=== PATIENT | female | born 1950 | race Caucasian/White ===

== ENCOUNTER → 2017-07-06 | Day surgery (SDC) | payer OTHER ==
--- NOTE | 2017-07-03 13:37 | History & Physical Pre-Op ---
General Information and HPI History of Present Illness: Angelica is a 67-year-old female with a long-standing and worsening complaint of pain to her left first metatarsophalangeal joint. The patient has undergone an extended course of conservative care, including shoe gear and activity modification, rest, immobilization and courses of NSAIDs. None of this is yielded her any significant relief. The patient presents today for preoperative surgical consultation. Allergies/Medications Allergies: Coded Allergies: No Known Allergies (07/02/17) Home Med list FERROUS SULFATE (IRON) (Unknown Strength) TAB (Unknown Dose) PO DAILY SUPPLEMENT (Reported) Hydrochlorothiazide (Hydrodiuril 25 MG Tab) 25 MG TAB 1 TAB PO DAILY BP ( Reported) Lisinopril 20 MG TAB 1 TAB PO DAILY BP (Reported) Past History Medical History Cardiovascular: hypertension Surgical History Pertinent Surgical History: knee replacement Review of Systems Review of Systems: Unremarkable except for that noted in history of present illness Exam & Diagnostic Data Physical Exam: Lungs clear bilaterally. Heart sounds rate and rhythm regular. Lower extremity physical exam demonstrates intact pedal pulses bilaterally. Both dorsalis pedis and posterior tibial arteries are palpable bilaterally. Patient without any sensory motor deficits. Deep tendon reflexes grossly intact. Patient noted to have significant pain with palpation or range of motion through the left first metatarsophalangeal joint. Assessment/Plan Assessment/Plan: Painful hallux limitus left foot. A lengthy discussion reviewing both surgical and conservative options was held the patient at bedside and the patient elected to go forward with surgery despite the risks. As Ranked By This Provider Problem List: 1. Hallux rigidus, left foot Attending MD Review Statement Attending Statement Attending MD Statement: examined this patient
[~2017-07-06] VITALS: Ht 167.6 cm; Wt 90.7 kg
[~2017-07-06] MED LIST: HYDRODIURIL 2525 MG PO; LISINOPRIL20 MG PO; NATURAL IRON65 MG PO
--- NOTE | 2017-07-06 21:53 | Operative Report ---
Operative/Inv Procedure Report Surgery Date: 07/06/17 Name of Procedure: 1 Hui bunionectomy left Pre-Operative Diagnosis: 1 Hallux limitus left Post-Operative Diagnosis: The same Estimated Blood Loss: scant Surgeon/Civil Engineering Project Designer: Balta POTTS,Freddie Head DPM Anesthesia: moderate sedation, block Operative/Procedure Note Note: After obtaining informed consent the patient was brought to the operating room and placed on the operating table in the supine position. The patient isn't securely fastened to the operating table utilizing a safety belt. After administration of IV sedation, 10 mL of 0.5% Marcaine plain was infiltrated about the patient's left ankle. A well-padded ankle tourniquet was placed about the patient's left lower extremity. The left foot and ankle within scrubbed, prepped and draped in usual aseptic manner. The left lower extremity is elevated to examine to limb, at which point the ankle tourniquet inflated 250 mmHg. Attention was then directed dorsal aspect the left foot, where a 6 cm linear incision was made just medial to the course of the extensor listless longus tendon. The dissection was then carried down to the capture structures where a linear capsulotomy was performed. Any dorsal exostoses is noted medially or laterally were excised of this sagittal bone saw. The dissection and continued onto the base proximal phalanx, with the periosteum was incised reflected. Sagittal bone saw was utilized to perform through and through osteotomy at the base of proximal phalanx, which was then freed and passed from the operative field. The wound was irrigated with cuff Svensson normal sterile saline. The capture structures reapproximated 3-0 Vicryl septae stitches reprepped with 4-0 Vicryl. Skin is then reapproximated 4-0 nylon. Incision was dressed with Xeroform 4 x 4's Kerlix and an Mahad wrap. The patient was noted tolerate both procedure and anesthesia well and the patient was transported from the operating room to recovery with vital signs stable best assess intact all digits left foot.
== END ==
LOC: STS 03:20
DX: M20.5X2 Other deformities of toe(s) (acquired), left foot (principal); M20.22 Hallux rigidus, left foot; M13.872 Other specified arthritis, left ankle and foot; I10 Essential (primary) hypertension
CPT/HCPCS: J0131; J0690; J2001; J2250; J2405